=== PATIENT | female | born 1940 | race African-American/Black ===

== ENCOUNTER 2017-09-23 15:46 | Emergency (ER) | payer MEDICARE, BC ==
[~2017-09-23] VITALS: Ht 152.4 cm; Wt 77.0 kg
[~2017-09-23 15:46] MED LIST: DORZ10DR9 OP; HYDR25TA PO; NIFE30TA23 PO; OMEP20TA2 PO; PR125 PO
[2017-09-23] MEDS ORDERED: HYDROCODONE/ACETAMINOPHEN 5/325MG TABLET PO STA (18:19)
[2017-09-23 22:00] VITALS: BP 151/62
== END 2017-09-23 22:00 | disposition home or self-care (01) ==
LOC: ER 16:16
DX: S70.02XA Contusion of left hip, initial encounter (principal); I10 Essential (primary) hypertension; E78.00 Pure hypercholesterolemia, unspecified; W01.0XXA Fall on same level from slipping, tripping and stumbling without subsequent striking against object, initial encounter; Y93.89 Activity, other specified; Y92.89 Other specified places as the place of occurrence of the external cause; Y99.8 Other external cause status
CPT/HCPCS: 72100; 73502; 73552; 99284